=== PATIENT | female | born 1990 | race Caucasian/White ===

== ENCOUNTER 2018-07-29 07:55 | Day surgery (SDC) | payer BC ==
[2018-07-27 08:09] VITALS: BMI 22.9
--- NOTE | 2018-07-28 09:04 | P.HPOB ---
History of Present Illness H&P Date: 07/28/18 Chief Complaint: HALLIE III 27 year old presents for LEEP due to ASCUS pap and HALLIE III on colposcopy. Review of Systems All systems: negative Constitutional: Denies chills, Denies fever Eyes: denies blurred vision, denies pain Ears, nose, mouth and throat: Denies headache, Denies sore throat Cardiovascular: Denies chest pain, Denies shortness of breath Respiratory: Denies cough Gastrointestinal: Denies abdominal pain, Denies diarrhea, Denies nausea, Denies vomiting Genitourinary: Denies dysuria, Denies hematuria Musculoskeletal: Denies myalgias Integumentary: Denies pruritus, Denies rash Neurological: Denies numbness, Denies weakness Psychiatric: Denies anxiety, Denies depression Endocrine: Denies fatigue, Denies weight change Past Medical History Past Medical History: No Reported History Additional Past Medical History / Comment(s): . History of Any Multi-Drug Resistant Organisms: None Reported Past Surgical History: No Surgical Hx Reported Additional Past Surgical History / Comment(s): oral surgery Past Anesthesia/Blood Transfusion Reactions: No Reported Reaction Smoking Status: Never smoker - Past Family History Father Family Medical History: No Reported History Mother Family Medical History: No Reported History Medications and Allergies Home Medications Medication Instructions Recorded Confirmed Type Multivitamins, Thera [Multivitamin 1 tab PO DAILY 07/27/18 07/27/18 History (formulary)] Allergies Allergy/AdvReac Type Severity Reaction Status Date / Time amoxicillin Allergy Rash/Hives Verified 07/27/18 08:02 amoxicillin trihydrate Allergy Rash/Hives Verified 07/27/18 08:02 [From Augmentin] potassium clavulanate Allergy Rash/Hives Verified 07/27/18 08:02 [From Augmentin] sulfamethoxazole Allergy Rash/Hives Verified 07/27/18 08:02 [From Bactrim] trimethoprim [From Bactrim] Allergy Rash/Hives Verified 07/27/18 08:02 Exam Osteopathic Statement: *. No significant issues noted on an osteopathic structural exam other than those noted in the History and Physical/Consult. 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 LEEP
[~2018-07-29 07:55] MED LIST: DEXAMETHASONE SOD PHOSPHATE 10 MG/ML 1 ML VIAL IV ONE; HYDROmorphone 0.5 MG/0.5 ML SYRINGE IVP PRN; LACTATED RINGERS 1,000 ML IV SCH; LIDOCAINE 1% 20 ML VIAL (10MG/ML) FOR IV START INTRADERMA PRN; ONDANSETRON 4 MG/2 ML VIAL IVP ONE; Pre Op ABX Message 1 EACH MISC MISCELLANE ONE; SCOPOLAMINE 1.5MG/72HR PATCH TRANSDERM ONE
[2018-07-29 08:23] VITALS: RESP 16
[2018-07-29] MEDS ORDERED: MIDAZOLAM 2 MG/2 ML VIAL IV ONE (08:44)
[2018-07-29] MEDS ORDERED: MIDAZOLAM 2 MG/2 ML VIAL ONE (10:03)
[2018-07-29] MEDS ORDERED: PROPOFOL 10 MG/ML 20 ML VIAL IV ONE (10:03)
[2018-07-29] MEDS ORDERED: fentaNYL (PF) 50 MCG/ML 2 ML AMP ONE (10:03)
[2018-07-29] MEDS ORDERED: LIDOCAINE 1% INJ 10MG/ML (20 ML MDV) ONE (10:03)
[2018-07-29] MEDS ORDERED: ACETIC ACID 15 DROPS/ML DROPS MISCELLANE ONE (10:15)
[2018-07-29] MEDS ORDERED: FERRIC SUBSULFATE (MONSELS) JAR TOPICAL ONE (10:15)
--- NOTE | 2018-07-29 10:26 | P.OP ---
Date of Procedure: 07/29/18 Preoperative Diagnosis: 1. HALLIE III, 2 grade discrepency between pap and colp Postoperative Diagnosis: 1. same Procedure(s) Performed: LEEP Anesthesia: MAC Surgeon: Alexandra Landry Estimated Blood Loss (ml): 2 IV fluids (ml): 400 Urine output (ml): 150 Pathology: other (cervical cone) Condition: stable Disposition: PACU Description of Procedure: Patient taken the operating room where general anesthesia Without difficulty. She is prepped and draped in normal sterile fashion dorsal lithotomy position, legs placed in candycane stirrups. Bladder was drained of all urine. A coated bivalve speculum was placed in the vagina. A 2 cm loop was hooked up to cautery and a cervical cone biopsy was taken with one sweep. The crater left side of the cervical cone biopsy was cauterized using the ball tip. Monsel's was placed to ensure hemostasis. All instrument removed from the vagina. Patient to our procedure well, sponge and instrument counts correct 2 and she was taken to recovery in stable condition.
[2018-07-29] MEDS ORDERED: LACTATED RINGERS 1,000 ML IV ONE (10:32)
[2018-07-29 10:52] VITALS: TEMP 97.6
[2018-07-29 11:19] VITALS: PULSE 76
[2018-07-29 11:52] VITALS: BP 112/68
== END 2018-07-29 12:11 | disposition home or self-care (01) ==
LOC: OR 07:55
PROVIDERS: ATTEND Obstetrics & Gynecology
DX: N87.1 Moderate cervical dysplasia (principal); Z88.0 Allergy status to penicillin; Z88.2 Allergy status to sulfonamides
CPT/HCPCS: 81025; 88307; 57522; J2250; J1100; J2405; J2001; J3010; J2704

== ENCOUNTER → 2024-10-20 | Outpatient (CLI) | payer OTHER ==
[2024-10-20 14:42] VITALS: BP 141/92; PULSE 88; RESP 16; TEMP 97.9
--- NOTE | 2024-10-20 15:45 | P.SLEEP ---
History of Present Illness DATE: 10/20/2024 CONSULTATION/NEW PATIENT EVALUATION HISTORY OF PRESENT ILLNESS/SLEEP-WAKE EVALUATION: 34-year-old lady had been ev aluated in the sleep center for sleepiness and multiple awakenings from sleep. SLEEP SCHEDULE: Usually sleep schedule from 10:30 PM to 6:30 AM on weekdays and from 11 PM to 7 AM on weekend. FALLING ASLEEP: No problems with falling asleep. DURING SLEEP: Patient sleeps on the side and barely position, can not to sleep on the back position. Patient wakes up from sleep up to 4 times with episodes of heartburn and nocturia. No history of hypnogogical hallucinations, sleep paralysis, or cataplexy. DURING THE DAY/WAKE STATE: In the morning patient wake up tired, falling asleep during the day. [place] sleepiness scale is significantly increased to 16. Patient may take 1 nap from 2 to 5 PM. PAST MEDICAL HISTORY: Anxiety. PAST SURGICAL HISTORY: LEEP. MEDICATIONS: Please see below. SOCIAL HISTORY: Please see below. FAMILY HISTORY: See below. REVIEW OF SYSTEMS: Multiple awakenings from sleep, sleepiness during the day. No fevers. No double vision. No recent chest pain. No shortness of breath. No abdominal pain. No bleeding episodes. No blood in urine. No seizure episodes. PHYSICAL EXAMINATION: GENERAL: A pleasant patient without any distress. VITAL SIGNS: Please see below, weight 152 pounds, BMI 25.1. HEENT: PERRLA, EOMI. Evaluation of oropharynx showed tongue protrudes midline, low position of soft palate Mallampati 3/4. NECK: Supple. No JVD. Thyroid is not palpable. 13-1/4 inches in circumference. LUNGS: Clear to percussion and to auscultation. Good air exchange. No wheezing or rhonchi. HEART: S1, S2 regular. No murmurs, gallops or rubs. ABDOMEN: Soft and nontender. Bowel sounds are present. No organomegaly appreciated. EXTREMITIES: No clubbing or cyanosis. CODING QUALITY ANALYST: Awake, alert, and oriented x3. Cranial nerves 2 to 7 intact. There is no fasciculation or atrophy noted. No focal deficits observed. ASSESSMENT: 1. Multiple awakenings from sleep, low position of soft palate, sleepiness during the day. Patient cannot sleep on the back position. Possible obstructive sleep apnea hypopnea syndrome. 2. Significant sleepiness with [place] Sleepiness Scale in high range of 16 narcolepsy and idiopathic hypersomnia differential diagnosis. 3. Anxiety. 4. Status post LEEP. PLAN: 1. Polysomnography for evaluation of patient's breathing during sleep. Multiple sleep latency test for objective assessment of patient's sleepiness, if polysomnogram will be negative for obstructive sleep apnea hypopnea syndrome. 2. Following plan after reading sleep study. 3. Preferable position during sleep on the side. 4. No driving if patient feels any sleepiness. Patient is aware of civil and criminal liability for unsafe driving. 5. Sleep hygiene with regular sleep time for at least 7.5-8 hours. 6. Watching weight. Thank you very much for referring this patient for consultation. Sincerely, Seng Soto MD, PhD, FAASM. Diplomat of [place] [employer], Sleep Medicine Board by [place] [employer] [place] [employer] Customer Assistant of [facility] [place] cc: Celso Garza MD Past Medical History Past Medical History: No Reported History Additional Past Medical History / Comment(s): kidney stones. History of Any Multi-Drug Resistant Organisms: None Reported Past Surgical History: No Surgical Hx Reported Additional Past Surgical History / Comment(s): oral surgery Past Anesthesia/Blood Transfusion Reactions: No Reported Reaction Past Psychological History: Anxiety Additional Psychological History / Comment(s): denies Smoking Status: Never smoker Past Alcohol Use History: Occasional Past Drug Use History: None Reported Additional Drug Use History / Comment(s): . - Past Family History Father Family Medical History: No Reported History Mother Family Medical History: No Reported History, Hypertension, Rheumatoid Arthritis (RA) Medications and Allergies Home Medications Medication Instructions Recorded Confirmed Type Multivitamins, Thera [Multivitamin 1 tab PO DAILY 07/27/18 07/27/18 History (formulary)] Acetaminophen-Codeine 300-30mg 2 tab PO Q6H PRN #10 tablet 07/29/18 Rx [Tylenol #3] Ibuprofen [Motrin] 600 mg PO Q6HR PRN #30 tab 07/29/18 Rx ALPRAZolam [Xanax] 0.25 mg PO BID PRN 10/20/24 10/20/24 History Citalopram Hydrobromide 20 mg PO DAILY 10/20/24 10/20/24 History [Citalopram HBr] norethindrone-e.estradioL-iron See Rx Instructions .ROUTE .COMPLEX 10/20/24 10/20/24 History [Regina 24 Fe 1 mg-20 Mcg Tablet] Allergies Allergy/AdvReac Type Severity Reaction Status Date / Time amoxicillin Allergy Rash/Hives Verified 07/29/18 08:22 amoxicillin trihydrate Allergy Rash/Hives Verified 07/29/18 08:22 [From Augmentin] potassium clavulanate Allergy Rash/Hives Verified 07/29/18 08:22 [From Augmentin] sulfamethoxazole Allergy Rash/Hives Verified 07/29/18 08:22 [From Bactrim] trimethoprim [From Bactrim] Allergy Rash/Hives Verified 07/29/18 08:22 Physical Exam Vitals: Vital Signs Temp Pulse Resp BP Pulse Ox 10/20/24 14:40 97.9 F 88 16 141/92 98 Intake and Output 10/20/24 10/20/24 10/20/24 06:59 14:59 22:59 Other: Weight 68.946 kg Sleep Note - Sleep Data ESS Total: 16 - Sleep Note Sleep Note: Temperature: 97.9 F Pulse Rate: 88 Respiratory Rate: 16 Blood Pressure: 141/92 SpO2: 98 Height: 5 ft 5.2 in Weight: 68.946 kg BMI: Neck Circumference: 13.2
== END ==
LOC: 3 N SLEEP 14:28
PROVIDERS: ATTEND Internal Medicine
DX: G47.33 Obstructive sleep apnea (adult) (pediatric) (principal); G47.419 Narcolepsy without cataplexy; F41.9 Anxiety disorder, unspecified; Z98.890 Other specified postprocedural states; Z88.1 Allergy status to other antibiotic agents; Z88.2 Allergy status to sulfonamides; Z88.8 Allergy status to other drugs, medicaments and biological substances
CPT/HCPCS: 99202

== ENCOUNTER 2024-12-26 19:38 | Outpatient (CLI) | payer OTHER ==
[2024-12-27 10:43] LABS: Urine Alcohol Negative (Negative); Urine Barbiturate Negative (Negative)
--- NOTE | 2024-12-28 11:51 | P.PCN ---
Description of Procedure: POLYSOMNOGRAPHY AND MSLT REPORT PROCEDURE(S)/DATE(S): Polysomnography 12/26/2024, multiple sleep latency test 12/27/2024 CLINICAL: Patient has been seen in the sleep center for evaluation of obstructive sleep apnea-hypopnea syndrome. Please see my consultation. Sleep study has been done for evaluation of patient breathing during the sleep. PROCEDURE: The standard montage for clinical polysomnography included the electroencephalogram, the electrooculogram, the mentalis surface electr omyography and Lead II cardiography. The respiratory battery consisted of measurements of nasal/buccal air flow, pressure transducer measurements from nose, thoracic and/or abdominal effort and intercostal surface electromyography. Video monitoring has been done to check for any parasomnia events. Nocturnal oxyhemoglobin saturations were obtained by finger oximetry. Step-cannon titration with positive airway pressure was utilized to control the respiratory events, if necessary. RESULTS: During the diagnostic sleep study sleep efficiency was normal 89.6%. Latency to sleep onset was slightly short 9.5 min. Sleep architecture showed stage NI was extremely short 0.5%, Delta sleep was normal 5.0%, REM sleep was normal 25.9%. Respiratory channel showed 0 obstructive apneas, 0 mixed apneas, 0 central apneas, 0 hypopneas with lowest oxygen level 95%. Total apnea hypopnea index was 0. Heart rate was in the range between 68 and 76, average 72. EMG showed 0 periodic limb movements per hour. Multiple sleep latency test have been done on the following day, consisted from 5 naps. Mean sleep latency was extremely pathologically short 1.8 minutes. No sleep onset REM periods have been documented, but patient is on treatment with Celexa which may decrease the amount of REM sleep. IMPRESSIONS: 1. No respiratory abnormalities have been documented during the sleep study, great oxygenation during sleep, lowest oxygen level 95%. 2. No significant periodic limb movements have been documented. 3. Multiple sleep latency test confirmed pathological sleepiness with mean sleep latency extremely short 1.8 minutes. No sleep onset REM. Have been documented, but patient is on treatment with SSRIs. Differential diagnosis include narcolepsy and idiopathic hypersomnia. Please see other impressions from consultation PLAN: 1. I will see patient for follow-up visit explained results of the test and recommendations. 2. Patient will be started on medication to prevent excessive daytime sleepiness. 3. Sleep hygiene with regular time in bed for at least 7-1/2 hours. 4. No driving if feeling sleepiness. Thank you very much for allowing me to participate in the management of your patient. Sincerely, Seng Soto MD, PhD, FAASM. Diplomat of [place] [employer], Sleep Medicine Board by [place] [employer] Vacuum System Tester of [facility] [place] cc: Celso Garza MD
== END 2024-12-27 16:15 | disposition home or self-care (01) ==
LOC: 3 N SLEEP 19:38
PROVIDERS: ATTEND Internal Medicine
DX: G47.33 Obstructive sleep apnea (adult) (pediatric) (principal); Z88.0 Allergy status to penicillin; Z88.2 Allergy status to sulfonamides
CPT/HCPCS: 80306; 95805; 95810

== ENCOUNTER → 2025-01-20 | Outpatient (CLI) | payer OTHER ==
--- NOTE | 2025-01-20 16:04 | P.PROGSL ---
Subjective DATE: 01/20/2025 FOLLOW UP VISIT. Patient returned to sleep center for follow-up visit to discuss results of sleep study and following plan. I discussed results of sleep studies with patient and family in details. Diagnostic polysomnogram did not show any respiratory abnormalities. No significant oxygen desaturation. Multiple sleep latency test confirmed pathological sleepiness with extremely short sleep latency 1.8 minutes. No sleep onset REM have been documented, but patient is on treatment with SSRIs. Patient continued to feel sleepiness during the day. [place] sleepiness scale is significantly increased to 16 today. During physical exam: GENERAL: A pleasant patient without any distress. VITAL SIGNS: BP 144/87, HR 86, RR 12, weight 145.2, temperature 97.9, oxygen saturation at room air 98%. HEENT: PERRLA, EOMI. NECK: Supple. No JVD. LUNGS: Clear to percussion and to auscultation. Good air exchange. No wheezing or rhonchi. HEART: S1, S2 regular. ABDOMEN: Soft and nontender. EXTREMITIES: No clubbing or cyanosis. ULTRASOUND MANAGER: Awake, alert, and oriented x3. No focal deficit. Impressions: 1. No significant respiratory abnormalities have been documented during the sleep study 2. Multiple sleep latency test confirmed pathological sleepiness with extremely short sleep latency 1.8 minutes. No sleep onset rems, but patient is on treatment with SSRIs, diagnosis narcolepsy type II. 3. History of anxiety. 4. Status post LEEP. Plan: 1. Patient will be started on treatment with Adderall 5 mg 1 tablet in the morning and 1 tablet around 1 PM. 2. Sleep hygiene with regular time in bed for at least 8 hours. 3. Daytime naps permitted 4. Precautions related to driving. No driving if feel any sleepiness. Patient is aware about civil and criminal liability for unsafe driving, promised to follow recommendations. 5. Follow up visit in 4-6 weeks or earlier if patient has any problems. Thank you very much for allowing me to participate in the management of your patient. Seng Soto MD, PhD, FAASM. Diplomat of [place] [employer], Sleep Medicine Board by [place] [employer] Content Assistant of [facility] [place] cc: Celso Garza MD Objective Home Medications: Home Medications Medication Instructions Recorded Confirmed Type Multivitamins, Thera [Multivitamin 1 tab PO DAILY 07/27/18 07/27/18 History (formulary)] Acetaminophen-Codeine 300-30mg 2 tab PO Q6H PRN #10 tablet 07/29/18 Rx [Tylenol #3] Ibuprofen [Motrin] 600 mg PO Q6HR PRN #30 tab 07/29/18 Rx ALPRAZolam [Xanax] 0.25 mg PO BID PRN 10/20/24 10/20/24 History Citalopram Hydrobromide 20 mg PO DAILY 10/20/24 10/20/24 History [Citalopram HBr] norethindrone-e.estradioL-iron See Rx Instructions .ROUTE .COMPLEX 10/20/24 10/20/24 History [Regina 24 Fe 1 mg-20 Mcg Tablet]
== END ==
LOC: 3 N SLEEP 15:23
PROVIDERS: ATTEND Internal Medicine
CPT/HCPCS: 99212